=== PATIENT | female | born 1950 | race Caucasian/White ===

== ENCOUNTER 2017-04-27 13:05 | Inpatient (IN) | payer MEDICARE, OTHER ==
[~2017-04-27] VITALS: Ht 170.2 cm; Wt 88.0 kg
[2017-04-27 13:05] VITALS: BP 156/60
[2017-04-27] MEDS ORDERED: PLAVIX75 MG ORAL (13:46)
[2017-04-27] MEDS ORDERED: LORAZEPAM0.5 MG ORAL (13:46)
[2017-04-27] MEDS ORDERED: LEXAPRO10 MG ORAL (13:46)
[2017-04-27] MEDS ORDERED: TIZANIDINE HCL4 MG ORAL (13:46)
[2017-04-27] MEDS ORDERED: TRIAZOLAM0.125 MG PO (13:46)
--- NOTE | 2017-04-27 13:57 | Diagnostic Imaging Report ---
Indication: Syncope Technique: Contiguous 5 mm thick transaxial imaging of the head obtained in a Siemens Sensation [address] scanner. Soft tissue and bone windows generated. Automatic Exposure Control was utilized. Total Dose length Product (DLP): [address] Dose Index Volume (CTDIvol): 70.38, 0.15 mGy Comparison: none Findings: There is mild prominence of the ventricles, basal cisterns, and cerebral sulci consistent with atrophy. Mild, nonspecific, white matter hypoattenuation is noted throughout the brain consistent with chronic small vessel disease. There is no midline shift, edema, acute hemorrhage, mass effect, or abnormal extra-axial fluid collections. Bones and extra osseous soft tissues are unremarkable. There is palpation in the paranasal sinuses noted. Impression: No acute intracranial bleed, mass effect or edema. Mild atrophy of the brain. Nonspecific white matter hypoattenuation probably due to chronic small vessel disease. Pansinusitis The CT scanner at [facility] is accredited by the [employer] and the scans are performed using dose optimization techniques as appropriate to a performed exam including Automatic Exposure control.
--- NOTE | 2017-04-27 13:57 | Diagnostic Imaging Report ---
Indication: Syncope Technique: Contiguous 5 mm thick transaxial imaging of the head obtained in a Siemens Sensation [address] scanner. Soft tissue and bone windows generated. Automatic Exposure Control was utilized. Total Dose length Product (DLP): [address] Dose Index Volume (CTDIvol): 70.38, 0.15 mGy Comparison: none Findings: There is mild prominence of the ventricles, basal cisterns, and cerebral sulci consistent with atrophy. Mild, nonspecific, white matter hypoattenuation is noted throughout the brain consistent with chronic small vessel disease. There is no midline shift, edema, acute hemorrhage, mass effect, or abnormal extra-axial fluid collections. Bones and extra osseous soft tissues are unremarkable. There is palpation in the paranasal sinuses noted. Impression: No acute intracranial bleed, mass effect or edema. Mild atrophy of the brain. Nonspecific white matter hypoattenuation probably due to chronic small vessel disease. Pansinusitis The CT scanner at [facility] is accredited by the [employer] and the scans are performed using dose optimization techniques as appropriate to a performed exam including Automatic Exposure control.
--- NOTE | 2017-04-27 13:59 | Diagnostic Imaging Report ---
Indication: Dyspnea Comparison: None A single view chest radiograph was obtained. Findings: Cardiomediastinal appearance is within normal limits for age. Sternotomy noted. Pulmonary vascularity is appropriate. The diaphragmatic contour is smooth and costophrenic angles are sharp. No pleural effusions are identified. The bones are osteopenic. Impression: No acute findings
[2017-04-27 14:27] LABS: BASOPHILS % (AUTO) 0.6 % (0.0-2.0); EOSINOPHILS % (AUTO) 1.5 % (0.0-3.0); HEMATOCRIT 36.8 % (37.0-47.0); HEMOGLOBIN 12.3 G/DL (12.0-16.0); LYMPHOCYTES % (AUTO) 28.9 % (20.0-45.0); MEAN CORPUSCULAR VOLUME 95 FL (80-99); MONOCYTES % (AUTO) 5.9 % (1.0-10.0); NEUTROPHILS % (AUTO) 63.1 % (45.0-75.0); PLATELET COUNT 221 K/UL (150-450); RED BLOOD COUNT 3.86 M/UL (4.20-5.40); RED CELL DISTRIBUTION WIDTH 12.8 % (11.6-14.8)
[2017-04-27 14:55] LABS: ALANINE AMINOTRANSFERASE 29 U/L (12-78); ALBUMIN 3.9 G/DL (3.4-5.0); ALBUMIN/GLOBULIN RATIO 1.1 (1.0-2.7); ALKALINE PHOSPHATASE 67 U/L (46-116); ANION GAP 15 mmol/L (5-15); ASPARTATE AMINO TRANSFERASE 18 U/L (15-37); BILIRUBIN,TOTAL 0.3 MG/DL (0.2-1.0); BLOOD UREA NITROGEN 22 mg/dL (7-18); CALCIUM 8.9 MG/DL (8.5-10.1); CARBON DIOXIDE 20 MMOL/L (21-32); CHLORIDE 105 MMOL/L (98-107); CREATININE 0.9 MG/DL (0.55-1.30); POTASSIUM 4.4 MMOL/L (3.5-5.1); SODIUM 140 MMOL/L (136-145)
[2017-04-27 15:00] VITALS: BP 148/63
[2017-04-27 15:16] LABS: CKMB 0.7 NG/ML (0.0-3.6); CREATINE KINASE 51 U/L (26-308)
--- NOTE | 2017-04-27 15:40 | Emergency Room Report ---
History of Present Illness General Chief Complaint: Multiple Trauma/Fall Source: Patient, EMS Present Illness HPI 66-year-old female presents ED status post syncope. Patient passed out today at home. hit her head. Questionable LOC. Patient presents with nausea and vomiting. Denies any headache. Patient states he takes Plavix. Denies any neck stiffness or blurry vision. Patient states she was prescribed a new medication by her neurologist for migraines. No other aggravating or relieving factors. Denies any other associated symptoms Allergies: Coded Allergies: No Known Allergies (Unverified , 04/27/17) Patient History Past Medical History: DM, HTN Past Surgical History: none Pertinent Family History: none Social History: Denies: smoking, alcohol use, drug use Now: No Immunizations: UTD Reviewed Nursing Documentation: PMH: Agreed, PSxH: Agreed Nursing Documentation-PMH Past Medical History: No History, Except For Hx Hypertension: Yes Hx Diabetes: Yes Review of Systems All Other Systems: negative except mentioned in HPI Physical Exam Vital Signs Date Time Temp Pulse Resp B/P (MAP) Pulse Ox O2 Delivery O2 Flow Rate FiO2 04/27/17 12:55 98.8 60 20 166/76 100 Room Air Sp02 EP Interpretation: reviewed, normal General Appearance: no apparent distress, alert, GCS 15, non-toxic Head: normocephalic, atraumatic Eyes: bilateral eye normal inspection, bilateral eye PERRL ENT: hearing grossly normal, normal pharynx, no angioedema, normal voice Neck: full range of motion, supple/symm/no masses Respiratory: chest non-tender, lungs clear, normal breath sounds, speaking full sentences Cardiovascular #1: regular rate, rhythm, no edema Cardiovascular #2: 2+ carotid (R), 2+ carotid (L), 2+ radial (R), 2+ radial (L) , 2+ dorsalis pedis (R), 2+ dorsalis pedis (L) Gastrointestinal: normal bowel sounds, non tender, soft, non-distended, no guarding, no rebound Rectal: deferred Genitourinary: normal inspection, no CVA tenderness Musculoskeletal: back normal, gait/station normal, normal range of motion, non- tender Neurologic: alert, oriented x3, responsive, motor strength/tone normal, sensory intact, speech normal Psychiatric: judgement/insight normal, memory normal, mood/affect normal, no suicidal/homicidal ideation Reflexes: 3+ bicep (R), 3+ bicep (L), 3+ tricep (R), 3+ tricep (L), 3+ knee (R) , 3+ knee (L) Skin: normal color, no rash, warm/dry, well hydrated Lymphatic: no adenopathy Medical Decision Making Diagnostic Impression: Primary Impression: Syncope Qualified Codes: R55 - Syncope and collapse ER Course Hospital Course 66-year-old F presents ED s/p syncopal episode. Differential diagnoses include: DC/unstable angina, arrythmia, dehydration, CVA/ TIA Clinical course Patient placed on stretcher. on quality assurance monitor. After initial history and physical I ordered labs, EKG, chest x-ray, IVFs, CT Brain labs reviewed- no leukocytosis, hemoglobin/hematocrit ok, electrolytes okay, troponins negative EKG-sinus bradycardia Chest x-ray- no acute process CT brain-unremarkable Neurologist is Dr. Fuentes. He agreed to admission and request that we admit to Dr. Tam Case discussed with Dr. Tam and he agreed to accept the patient to his service for further care and support I. I feel this is a highly complex case requiring extensive working including EKG/Rhythm strip, Xray/CT/US, Blood/urine lab work, repeat exams while in ED, and administration of strong opiates/narcotics for pain control, admission to hospital or close patient follow up. Diagnosis - syncope admitted to telemetry in serious condition Labs Test 04/27/17 13:20 White Blood Count 6.0 K/UL (4.8-10.8) Red Blood Count 3.86 M/UL (4.20-5.40) Hemoglobin 12.3 G/DL (12.0-16.0) Hematocrit 36.8 % (37.0-47.0) Mean Corpuscular Volume 95 FL (80-99) Mean Corpuscular Hemoglobin 31.9 PG (27.0-31.0) Mean Corpuscular Hemoglobin Concent 33.5 G/DL (32.0-36.0) Red Cell Distribution Width 12.8 % (11.6-14.8) Platelet Count 221 K/UL (150-450) Mean Platelet Volume 6.9 FL (6.5-10.1) Neutrophils (%) (Auto) 63.1 % (45.0-75.0) Lymphocytes (%) (Auto) 28.9 % (20.0-45.0) Monocytes (%) (Auto) 5.9 % (1.0-10.0) Eosinophils (%) (Auto) 1.5 % (0.0-3.0) Basophils (%) (Auto) 0.6 % (0.0-2.0) Prothrombin Time 10.0 SEC (9.30-11.50) Prothromb Time International Ratio 1.0 (0.9-1.1) Activated Partial Thromboplast Time 22 SEC (23-33) Sodium Level 140 MMOL/L (136-145) Potassium Level 4.4 MMOL/L (3.5-5.1) Chloride Level 105 MMOL/L (98-107) Carbon Dioxide Level 20 MMOL/L (21-32) Anion Gap 15 mmol/L (5-15) Blood Urea Nitrogen 22 mg/dL (7-18) Creatinine 0.9 MG/DL (0.55-1.30) Estimat Glomerular Filtration Rate > 60 mL/min (>60) Glucose Level 157 MG/DL (74-106) Calcium Level 8.9 MG/DL (8.5-10.1) Total Bilirubin 0.3 MG/DL (0.2-1.0) Aspartate Amino Transf (AST/SGOT) 18 U/L (15-37) Alanine Aminotransferase (ALT/SGPT) 29 U/L (12-78) Alkaline Phosphatase 67 U/L (46-116) Total Creatine Kinase 51 U/L (26-308) Creatine Kinase MB 0.7 NG/ML (0.0-3.6) Creatine Kinase MB Relative Index 1.3 Troponin I 0.000 ng/mL (0.000-0.056) Pro-B-Type Natriuretic Peptide 193 pg/mL (0-125) Total Protein 7.3 G/DL (6.4-8.2) Albumin 3.9 G/DL (3.4-5.0) Globulin 3.4 g/dL Albumin/Globulin Ratio 1.1 (1.0-2.7) EKG Diagnostic Results Rate: bradycardiac Rhythm: NSR ST Segments: no acute changes ASA given to the pt in ED: No Rhythm Strip Diag. Results EP Interpretation: yes Rhythm: NSR, no PVC's, no ectopy Chest X-Ray Diagnostic Results Chest X-Ray Diagnostic Results : Chest X-Ray Ordered: Yes # of Views/Limited/Complete: 1 View Indication: Other - syncope EP Interpretation: Yes Interpretation: no consolidation, no effusion, no pneumothorax, no acute cardiopulmonary disease Impression: No acute disease Electronically Signed by: Electronically signed by Joshua Mike MD CT/MRI/US Diagnostic Results CT/MRI/US Diagnostic Results : Imaging Test Ordered: cT head Impression no acute process Last Vital Signs Date Time Temp Pulse Resp B/P (MAP) Pulse Ox O2 Delivery O2 Flow Rate FiO2 04/27/17 13:05 98.8 55 22 156/60 100 Room Air Status: improved Disposition: ADMITTED INPATIENT Condition: Serious Referrals: NON PHYSICIAN (PCP) JOSHUA MIKE M.D. Apr 27, 2017 15:40
[2017-04-27 17:00] VITALS: BP 144/58
[2017-04-27 17:40] VITALS: BP 181/67
--- NOTE | 2017-04-27 18:25 | Neurology Progress Note ---
Objective Physical Exam Last Vital Signs Date Time Temp Pulse Resp B/P (MAP) Pulse Ox O2 Delivery O2 Flow Rate FiO2 04/27/17 17:00 98.0 52 17 144/58 100 Room Air Laboratory Tests Test 04/27/17 13:20 White Blood Count 6.0 K/UL (4.8-10.8) Red Blood Count 3.86 M/UL (4.20-5.40) L Hemoglobin 12.3 G/DL (12.0-16.0) Hematocrit 36.8 % (37.0-47.0) L Mean Corpuscular Volume 95 FL (80-99) Mean Corpuscular Hemoglobin 31.9 PG (27.0-31.0) H Mean Corpuscular Hemoglobin Concent 33.5 G/DL (32.0-36.0) Red Cell Distribution Width 12.8 % (11.6-14.8) Platelet Count 221 K/UL (150-450) Mean Platelet Volume 6.9 FL (6.5-10.1) Neutrophils (%) (Auto) 63.1 % (45.0-75.0) Lymphocytes (%) (Auto) 28.9 % (20.0-45.0) Monocytes (%) (Auto) 5.9 % (1.0-10.0) Eosinophils (%) (Auto) 1.5 % (0.0-3.0) Basophils (%) (Auto) 0.6 % (0.0-2.0) Prothrombin Time 10.0 SEC (9.30-11.50) Prothromb Time International Ratio 1.0 (0.9-1.1) Activated Partial Thromboplast Time 22 SEC (23-33) L Sodium Level 140 MMOL/L (136-145) Potassium Level 4.4 MMOL/L (3.5-5.1) Chloride Level 105 MMOL/L (98-107) Carbon Dioxide Level 20 MMOL/L (21-32) L Anion Gap 15 mmol/L (5-15) Blood Urea Nitrogen 22 mg/dL (7-18) H Creatinine 0.9 MG/DL (0.55-1.30) Estimat Glomerular Filtration Rate > 60 mL/min (>60) Glucose Level 157 MG/DL (74-106) H Calcium Level 8.9 MG/DL (8.5-10.1) Total Bilirubin 0.3 MG/DL (0.2-1.0) Aspartate Amino Transf (AST/SGOT) 18 U/L (15-37) Alanine Aminotransferase (ALT/SGPT) 29 U/L (12-78) Alkaline Phosphatase 67 U/L (46-116) Total Creatine Kinase 51 U/L (26-308) Creatine Kinase MB 0.7 NG/ML (0.0-3.6) Creatine Kinase MB Relative Index 1.3 Troponin I 0.000 ng/mL (0.000-0.056) Pro-B-Type Natriuretic Peptide 193 pg/mL (0-125) H Total Protein 7.3 G/DL (6.4-8.2) Albumin 3.9 G/DL (3.4-5.0) Globulin 3.4 g/dL Albumin/Globulin Ratio 1.1 (1.0-2.7) Impression/Recommendations Problems: (1) recurrent syncope , vasovagal type (2) severe headache , muscle contraction type (3) depression, anxiety (4) CAD (coronary artery disease) of bypass graft Status: unchanged Recommendations # [id number] MARCI CASAREZ Apr 27, 2017 18:25
[2017-04-27] MEDS ORDERED: METFORMIN HCL500 M1 ORAL (18:32)
[2017-04-27] MEDS ORDERED: VITAMIN D250000 UNI1 ORAL ×2 (18:32)
[2017-04-27] MEDS ORDERED: LINZESS290 MCG PO (18:32)
[2017-04-27] MEDS ORDERED: LOVENOX80 MG/0.8 SUBQ (18:54)
[2017-04-27] MEDS ORDERED: LIPITOR80 MG ORAL (18:54)
[2017-04-27] MEDS ORDERED: ISOSORBIDE DINI20 M2 PO (18:54)
[2017-04-27] MEDS ORDERED: DEXILANT60 MG ORAL (18:54)
[2017-04-27] MEDS ORDERED: RANEXA500 MG ORAL (18:54)
[2017-04-27] MEDS ORDERED: FOLIC ACID1 M1 PO (18:54)
[2017-04-27] MEDS ORDERED: CLONIDINE HCL0.1 MG PO (18:54)
[2017-04-27] MEDS ORDERED: COZAAR50 MG ORAL (18:54)
[2017-04-27] MEDS ORDERED: ASPIR 8181 MG ORAL (18:54)
[2017-04-27] MEDS ORDERED: CLOPIDOGREL75 MG ORAL (18:54)
[2017-04-27] MEDS ORDERED: ATIVAN0.5 MG ORAL (18:54)
[2017-04-27 20:00] VITALS: BP 156/73
[2017-04-27] MEDS ORDERED: Aspirin Baby 81mg ORAL SCH (21:00)
[2017-04-27] MEDS ORDERED: LORazepam 0.5mg tab ORAL SCH (21:00)
[2017-04-27] MEDS ORDERED: LORazepam Inj 2mg/ml 1ml IV PRN (21:30)
[2017-04-27] MEDS ORDERED: Mylanta II UD 30ml ORAL PRN (21:30)
[2017-04-27] MEDS ORDERED: Albuterol/Ipratropium 3ml neb HHN PRN (21:30)
[2017-04-27] MEDS ORDERED: Nitroglycerin Subl 0.4mg tab SL PRN (21:30)
[2017-04-27] MEDS ORDERED: Miralax 17gm pkt ORAL PRN (21:30)
[2017-04-27] MEDS: Ranolazine 500mg tab ORAL SCH (21:51)
[2017-04-28] VITALS: BP 142/65
--- NOTE | 2017-04-28 03:00 | Consultation ---
DATE OF CONSULTATION: 04/27/2017 NEUROLOGICAL CONSULTATION CONSULTING PHYSICIAN: Fox Sanders M.D. REQUESTING PHYSICIAN: Nicola Tam M.D. HISTORY OF PRESENT ILLNESS: This is a 66-year-old female, seen in neurological consultation to evaluate the transient loss of consciousness. According to the patient last night, she took all medications including newly prescribed Lexapro 10 mg and tizanidine 2 mg. She had severe headache "as usual." She slept well, got up in the morning still with a headache. She went to take all her medications again, and 10 minutes later, she started to feel generalized weakness, so she had to sit down. She felt drowsy. She tried to get up. At that point, she became dizzy, "I felt like I'm going to lose consciousness," and indeed in a few seconds, she lost consciousness, fell down hitting the back of her head against the floor. Upon awakening, she was having difficulty speaking. She had episodes of vomiting. She could not get up. With some effort, she was able to reach the phone and called her daughter explaining her that she is not feeling well. She remained on the floor, as the paramedics arrived. Her vital signs included blood pressure 166/76. She was afebrile. Imaging studies obtained including CAT scan of the brain without contrast did reveal no evidence of acute intracranial abnormality. There was a mild atrophy and nonspecific white matter hypoattenuation, probably chronic small vessel disease. Chest x-ray, no acute finding. Her laboratory work included unremarkable CBC study, coagulation panel, and chemistry panel with BUN of 22, blood sugar 157, BNP 193. Normal CK, CK-MB, and normal troponins. Following admission to present, she continued with the headache and the pain at the occipital region. PAST MEDICAL HISTORY: The patient known to me from a recent assessment. She presented with persistent severe daily headaches for the last four months. Noticed that with severity of headache, she has elevation of her blood pressure. She was treated with Tylenol 1000 mg b.i.d. and 800 mg daily with minor improvement. On 03/05/2017, she had MRI of the brain without contrast. This was read as negative. The patient indicated headaches, usual diffuse, pressure-like, mostly in noon time, while the medications taken in the morning controlling headaches until noon. She is complaining of being very anxious. Two years ago, she became a and her grandson . She became severely depressed, initially placed on Klonopin. She had at least two syncopal episodes with blunt head trauma. No evidence of paroxysmal activities. No seizure activities. Symptoms again progressed over the last four months. In July 2016, she had cardiac angioplasty. She is status post CABG. She has hypertension. She is seeing psychiatrist, receiving Ativan 0.5 mg at bedtime. The patient remained unchanged. EKG with sinus bradycardia. She is on cardiac monitoring. PAST MEDICAL HISTORY: The patient has extensive medical history. This includes hypertension, coronary artery disease, depression, anxiety, hypothyroidism, and hyperlipidemia. MEDICATIONS: Her treatment now includes Plavix and aspirin, but also amlodipine, clonidine, metformin, Ranexa, Imdur, levothyroxine, as well as Ativan 0.5 mg at bedtime. ALLERGIES: None, but there is intolerance of Klonopin and Zoloft. She has a history of left shoulder sprain, severe pain in the left shoulder triggering headaches. Currently, no chest pain. No palpitations. Denies respiratory problems. She has no abdominal pain discomfort, but has frequently constipation. She admits being anxious and depressed. SOCIAL HISTORY: She lives alone, but has a close family. No alcohol. No drug abuse. Nonsmoker. She is a . PHYSICAL EXAMINATION: GENERAL: A well-developed, well-nourished female, not in acute distress, now lying in bed comfortably. VITAL SIGNS: Her current vital signs stable. Blood pressure 144/58, heart rate 62, and afebrile. HEENT: Head, normocephalic. There is palpable tenderness in the occipital region. No hemorrhage, no otorrhea, no rhinorrhea noted. NECK: Supple. No meningeal signs. MUSCULOSKELETAL: Tenderness to palpation in the left shoulder, increasing with movement. EXTREMITIES: Upper and lower extremities without clubbing, cyanosis, or edema. MENTAL STATUS: Alert and oriented x3 with no evidence of aphasia or apraxia. Cognitive function normal. Emotionally labile, tense, and anxious. CRANIAL NERVE II: Pupils both responding to light and accommodation. Extraocular movements intact. No nystagmus. CRANIAL NERVE V: Normal corneal responses. CRANIAL NERVE VII: No facial asymmetry. CRANIAL NERVE VIII: Normal hearing. CRANIAL NERVES IX THROUGH XII: Tongue is in the midline. Symmetric palate elevation. MOTOR EXAMINATION: Normal muscle tone and strength 5/5 in all extremities. No involuntary movements. Deep tendon reflexes 1+ and symmetric with downgoing toes on both sides. Sensory exam normal to pinprick and light touch. Gait not tested, but reportedly slightly unstable. IMPRESSION: 1. Recurrent syncopal episode, probably vasovagal, rule out cardiac arrhythmia. 2. Intractable cephalalgia, muscle contraction type. 3. Anxiety, depression. 4. Status post left shoulder sprain. 5. Hypertension. 6. Coronary artery disease, status post coronary artery bypass graft. 7. Hypothyroidism. RECOMMENDATIONS: 1. P.o. hydration. 2. Orthostatic blood pressure. 3. Carotid duplex study. 4. Discontinue tizanidine, which may contribute to orthostatic hypotension. 5. Continue with Tylenol and Advil for pain management. 6. Continue with Lexapro 10 mg daily and Ativan 0.25 mg every morning and 0.5 every evening. Thank you for allowing me to see this interesting patient in neurological consultation. Fox Sanders M.D. DR: ELDER JOB#: [id number] CC:
[2017-04-28 04:00] VITALS: BP 155/63
[2017-04-28] MEDS: NovoLOG Insulin Flexpen SUBQ SCH ×2 (06:30→11:30)
[2017-04-28] MEDS ORDERED: LORazepam 0.5mg tab ORAL SCH (06:30)
[2017-04-28 08:00] VITALS: BP 164/90
--- NOTE | 2017-04-28 08:04 | Cardiology Progress Note ---
Assessment/Plan Assessment/Plan syncoep / near syncope cephalgia bradycardia sinus dm htn hld his of hep c cured nafld dkeep on tele orthostatic vitals avoid neg chronotropic meds pt herself convinced all sx related to tizanidine repeat trop and ekg will follwo [id number] Objective Last 24 Hour Vital Signs Date Time Temp Pulse Resp B/P (MAP) Pulse Ox O2 Delivery O2 Flow Rate FiO2 04/28/17 04:00 97.9 59 20 155/63 96 Room Air 04/28/17 04:00 56 04/28/17 00:00 53 04/28/17 00:00 98.1 52 20 142/65 96 Room Air 04/27/17 20:00 53 04/27/17 20:00 97.0 51 20 156/73 99 Room Air 04/27/17 19:27 181/67 04/27/17 17:40 97.5 58 17 181/67 100 Room Air 04/27/17 17:00 98.0 52 17 144/58 100 Room Air 04/27/17 15:57 98.2 50 15 148/63 97 Room Air 04/27/17 15:00 98.2 50 15 148/63 97 Room Air 04/27/17 13:05 98.8 55 22 156/60 100 Room Air 04/27/17 12:55 98.8 60 20 166/76 100 Room Air Laboratory Tests Test 04/27/17 13:20 White Blood Count 6.0 K/UL (4.8-10.8) Red Blood Count 3.86 M/UL (4.20-5.40) L Hemoglobin 12.3 G/DL (12.0-16.0) Hematocrit 36.8 % (37.0-47.0) L Mean Corpuscular Volume 95 FL (80-99) Mean Corpuscular Hemoglobin 31.9 PG (27.0-31.0) H Mean Corpuscular Hemoglobin Concent 33.5 G/DL (32.0-36.0) Red Cell Distribution Width 12.8 % (11.6-14.8) Platelet Count 221 K/UL (150-450) Mean Platelet Volume 6.9 FL (6.5-10.1) Neutrophils (%) (Auto) 63.1 % (45.0-75.0) Lymphocytes (%) (Auto) 28.9 % (20.0-45.0) Monocytes (%) (Auto) 5.9 % (1.0-10.0) Eosinophils (%) (Auto) 1.5 % (0.0-3.0) Basophils (%) (Auto) 0.6 % (0.0-2.0) Prothrombin Time 10.0 SEC (9.30-11.50) Prothromb Time International Ratio 1.0 (0.9-1.1) Activated Partial Thromboplast Time 22 SEC (23-33) L Sodium Level 140 MMOL/L (136-145) Potassium Level 4.4 MMOL/L (3.5-5.1) Chloride Level 105 MMOL/L (98-107) Carbon Dioxide Level 20 MMOL/L (21-32) L Anion Gap 15 mmol/L (5-15) Blood Urea Nitrogen 22 mg/dL (7-18) H Creatinine 0.9 MG/DL (0.55-1.30) Estimat Glomerular Filtration Rate > 60 mL/min (>60) Glucose Level 157 MG/DL (74-106) H Calcium Level 8.9 MG/DL (8.5-10.1) Total Bilirubin 0.3 MG/DL (0.2-1.0) Aspartate Amino Transf (AST/SGOT) 18 U/L (15-37) Alanine Aminotransferase (ALT/SGPT) 29 U/L (12-78) Alkaline Phosphatase 67 U/L (46-116) Total Creatine Kinase 51 U/L (26-308) Creatine Kinase MB 0.7 NG/ML (0.0-3.6) Creatine Kinase MB Relative Index 1.3 Troponin I 0.000 ng/mL (0.000-0.056) Pro-B-Type Natriuretic Peptide 193 pg/mL (0-125) H Total Protein 7.3 G/DL (6.4-8.2) Albumin 3.9 G/DL (3.4-5.0) Globulin 3.4 g/dL Albumin/Globulin Ratio 1.1 (1.0-2.7) TERI THAO Apr 28, 2017 08:04
[2017-04-28] MEDS: Ranolazine 500mg tab ORAL SCH (08:18)
[2017-04-28 08:33] LABS: BASOPHILS % (AUTO) 0.6 % (0.0-2.0); EOSINOPHILS % (AUTO) 1.1 % (0.0-3.0); HEMATOCRIT 38.4 % (37.0-47.0); HEMOGLOBIN 12.1 G/DL (12.0-16.0); LYMPHOCYTES % (AUTO) 40.9 % (20.0-45.0); MEAN CORPUSCULAR VOLUME 96 FL (80-99); MONOCYTES % (AUTO) 8.7 % (1.0-10.0); NEUTROPHILS % (AUTO) 48.8 % (45.0-75.0); PLATELET COUNT 220 K/UL (150-450); RED BLOOD COUNT 3.98 M/UL (4.20-5.40); RED CELL DISTRIBUTION WIDTH 12.6 % (11.6-14.8); WHITE BLOOD COUNT 8.8 K/UL (4.8-10.8)
[2017-04-28 08:36] VITALS: BP 164/90
[2017-04-28 09:00] LABS: ALANINE AMINOTRANSFERASE 23 U/L (12-78); ALBUMIN 3.7 G/DL (3.4-5.0); ALBUMIN/GLOBULIN RATIO 1.1 (1.0-2.7); ALKALINE PHOSPHATASE 69 U/L (46-116); ANION GAP 9 mmol/L (5-15); ASPARTATE AMINO TRANSFERASE 16 U/L (15-37); BILIRUBIN,TOTAL 0.3 MG/DL (0.2-1.0); BLOOD UREA NITROGEN 20 mg/dL (7-18); CARBON DIOXIDE 26 MMOL/L (21-32); CHLORIDE 107 MMOL/L (98-107); POTASSIUM 4.3 MMOL/L (3.5-5.1); SODIUM 142 MMOL/L (136-145)
[2017-04-28] MEDS ORDERED: Heparin 5000 units/ml inj SUBQ SCH (09:00)
[2017-04-28] MEDS ORDERED: metFORMIN 500mg tab ORAL SCH (09:00)
[2017-04-28] MEDS ORDERED: Losartan 50mg tab ORAL SCH (09:00)
[2017-04-28] MEDS ORDERED: Imdur 30mg tab ORAL SCH (09:00)
[2017-04-28 09:11] LABS: CHOLESTEROL 166 MG/DL (< 200); HDL CHOLESTEROL 43 MG/DL (40-60); TRIGLYCERIDES 174 MG/DL (0-200)
--- NOTE | 2017-04-28 12:14 | Neurology Progress Note ---
Interim History Interim History ROS Limited/Unobtainable: No Complaints: Lei today better Events: stable Objective Physical Exam Last Vital Signs Date Time Temp Pulse Resp B/P (MAP) Pulse Ox O2 Delivery O2 Flow Rate FiO2 04/28/17 08:36 164/90 04/28/17 08:00 96.4 59 21 95 Room Air 04/28/17 07:33 21 Laboratory Tests Test 04/27/17 13:20 04/28/17 07:20 White Blood Count 6.0 K/UL (4.8-10.8) 8.8 K/UL (4.8-10.8) Red Blood Count 3.86 M/UL (4.20-5.40) L 3.98 M/UL (4.20-5.40) L Hemoglobin 12.3 G/DL (12.0-16.0) 12.1 G/DL (12.0-16.0) Hematocrit 36.8 % (37.0-47.0) L 38.4 % (37.0-47.0) Mean Corpuscular Volume 95 FL (80-99) 96 FL (80-99) Mean Corpuscular Hemoglobin 31.9 PG (27.0-31.0) H 30.3 PG (27.0-31.0) Mean Corpuscular Hemoglobin Concent 33.5 G/DL (32.0-36.0) 31.4 G/DL (32.0-36.0) L Red Cell Distribution Width 12.8 % (11.6-14.8) 12.6 % (11.6-14.8) Platelet Count 221 K/UL (150-450) 220 K/UL (150-450) Mean Platelet Volume 6.9 FL (6.5-10.1) 6.8 FL (6.5-10.1) Neutrophils (%) (Auto) 63.1 % (45.0-75.0) 48.8 % (45.0-75.0) Lymphocytes (%) (Auto) 28.9 % (20.0-45.0) 40.9 % (20.0-45.0) Monocytes (%) (Auto) 5.9 % (1.0-10.0) 8.7 % (1.0-10.0) Eosinophils (%) (Auto) 1.5 % (0.0-3.0) 1.1 % (0.0-3.0) Basophils (%) (Auto) 0.6 % (0.0-2.0) 0.6 % (0.0-2.0) Prothrombin Time 10.0 SEC (9.30-11.50) 10.1 SEC (9.30-11.50) Prothromb Time International Ratio 1.0 (0.9-1.1) 1.0 (0.9-1.1) Activated Partial Thromboplast Time 22 SEC (23-33) L 25 SEC (23-33) Sodium Level 140 MMOL/L (136-145) 142 MMOL/L (136-145) Potassium Level 4.4 MMOL/L (3.5-5.1) 4.3 MMOL/L (3.5-5.1) Chloride Level 105 MMOL/L (98-107) 107 MMOL/L (98-107) Carbon Dioxide Level 20 MMOL/L (21-32) L 26 MMOL/L (21-32) Anion Gap 15 mmol/L (5-15) 9 mmol/L (5-15) Blood Urea Nitrogen 22 mg/dL (7-18) H 20 mg/dL (7-18) H Creatinine 0.9 MG/DL (0.55-1.30) 1.0 MG/DL (0.55-1.30) Estimat Glomerular Filtration Rate > 60 mL/min (>60) 55.1 mL/min (>60) Glucose Level 157 MG/DL (74-106) H 113 MG/DL (74-106) H Calcium Level 8.9 MG/DL (8.5-10.1) 9.0 MG/DL (8.5-10.1) Total Bilirubin 0.3 MG/DL (0.2-1.0) 0.3 MG/DL (0.2-1.0) Aspartate Amino Transf (AST/SGOT) 18 U/L (15-37) 16 U/L (15-37) Alanine Aminotransferase (ALT/SGPT) 29 U/L (12-78) 23 U/L (12-78) Alkaline Phosphatase 67 U/L (46-116) 69 U/L (46-116) Total Creatine Kinase 51 U/L (26-308) Creatine Kinase MB 0.7 NG/ML (0.0-3.6) Creatine Kinase MB Relative Index 1.3 Troponin I 0.000 ng/mL (0.000-0.056) Pro-B-Type Natriuretic Peptide 193 pg/mL (0-125) H Total Protein 7.3 G/DL (6.4-8.2) 7.2 G/DL (6.4-8.2) Albumin 3.9 G/DL (3.4-5.0) 3.7 G/DL (3.4-5.0) Globulin 3.4 g/dL 3.5 g/dL Albumin/Globulin Ratio 1.1 (1.0-2.7) 1.1 (1.0-2.7) Triglycerides Level 174 MG/DL (0-200) Cholesterol Level 166 MG/DL (< 200) LDL Cholesterol 100 mg/dL (<100) HDL Cholesterol 43 MG/DL (40-60) Cholesterol/HDL Ratio 3.9 (3.3-4.4) Thyroid Stimulating Hormone (TSH) 1.885 uiU/mL (0.360-3.740) General: well developed, well nourished, no acute distress Head: normocophalic, atraumatic Neurologic Exam Mental Status: awake, alert, oriented x4, normal cognition, good mathematical skills, normal recent memory, normal remote memory, preserved visuospatial function, other - very anxious Speech: normal speech, no dysarthia Language: normal language, no aphasia Cranial Nerve II: fundus normal, visual mckeon, no papilledema Cranial Nerves III, IV, : PERRLA, EOMI, pupils Cranial Nerve V: normal facial sensations, temporales function normal, masseters function normal, pterygoids function normal Cranial Nerve VII: no facial asymmetry, normal facial expressions Cranial Nerve VIII: normal hearing, no nystagmus Cranial Nerve IX: normal palate elevation, gag response Cranial Nerve X: no voice hoarseness Cranial Nerve XI: SCM symmetric, trapezii function normal Cranial Nerve XII: tongue midline, no tongue atrophy/fasciculations Motor System: normal muscle tone, strength 5/5, no involuntary movement, no muscle wasting Sensory: normal pinprick, normal light touch, normal position sense, normal graphesthesia Coordination: normal finger to nose bilaterally, normal heel to vicente bilaterally, negative Romberg test Deep Tendon Reflexes: 2+ bicep (L), 2+ bicep (R), 2+ tricep (L), 2+ tricep (R) , 2+ brachioradialis (L), 2+ brachioradialis (R), 2+ knee (L), 2+ knee (R), 2+ ankle (L), 2+ ankle (R) Stance: normal Gait: stable, normal regular, heel + toe gait Impression/Recommendations Problems: (1) recurrent syncope , vasovagal type (2) severe headache , muscle contraction type (3) depression, anxiety (4) CAD (coronary artery disease) of bypass graft Status: stable, unchanged Recommendations # [id number] MARCI Fernández Apr 28, 2017 12:14
--- NOTE | 2017-04-28 13:13 | History and Physical ---
History of Present Illness General Date patient seen: Apr 27, 2017 Reason for Hospitalization: Multiple Trauma/Fall Present Illness HPI 66-year-old female presented to ED status post syncope. Patient passed out today at home and hit her head. She also had some nausea and vomiting. Denies any neck stiffness or blurry vision. Patient states she was prescribed a new medication by her neurologist for migraines. No other aggravating or relieving factors. Denies any other associated symptoms. She is admitted to telemetry for w/u of her syncopal episode. Allergies: Coded Allergies: No Known Allergies (Unverified , 04/27/17) Medication History Scheduled Aspirin* (Aspir 81*), 81 MG ORAL DAILY, (Reported) Atorvastatin (Lipitor), 10 MG ORAL DAILY, (Reported) Clopidogrel Bisulfate* (Plavix*), Unknown Dose ORAL DAILY, (Reported) Clopidogrel* (Clopidogrel*), 75 MG ORAL DAILY, (Reported) Dexlansoprazole (Dexilant), 60 MG ORAL DAILY, (Reported) Enoxaparin (Lovenox), 80 MG SUBQ DAILY, (Reported) Ergocalciferol (Vitamin D2)* (Vitamin D*), 50,000 UNIT ORAL ONCE A WEEK, ( Reported) Ergocalciferol (Vitamin D2)* (Vitamin D*), 50,000 UNIT ORAL DAILY, (Reported) Escitalopram Oxalate* (Lexapro*), Unknown Dose ORAL DAILY, (Reported) Folic Acid (Folic Acid), 1 MG PO DAILY, (Reported) Isosorbide Dinitrate (Isosorbide Dinitrate), 60 MG PO BID, (Reported) Lorazepam* (Lorazepam*), Unknown Dose ORAL THREE TIMES A DAY, (Reported) Lorazepam* (Ativan*), 0.5 MG ORAL THREE TIMES A DAY, (Reported) Losartan Potassium* (Cozaar*), 50 MG ORAL DAILY, (Reported) Metformin Hcl* (Metformin Hcl*), 500 MG ORAL TWICE A DAY, (Reported) Ranolazine* (Ranexa*), 500 MG ORAL EVERY 12 HOURS, (Reported) Tizanidine Hcl* (Zanaflex*), Unknown Dose ORAL THREE TIMES A DAY, (Reported) Triazolam* (Halcion*), Unknown Dose PO QHS PRN SLEEP, (Reported) Miscellaneous Medications Clonidine Hcl (Clonidine Hcl), 0.1 MG PO, (Reported) Linaclotide (Linzess), 290 MCG PO, (Reported) Patient History Healthcare decision maker Resuscitation status Full Code Advanced Directive on File Past Medical/Surgical History Past Medical/Surgical History: (1) CAD (coronary artery disease) of bypass graft (2) depression, anxiety Review of Systems Constitutional: Reports: malaise, weakness Eye: Reports: no symptoms ENT: Reports: no symptoms Respiratory: Reports: no symptoms All Other Systems: negative except mentioned in HPI Physical Exam General Appearance: WD/WN Lines, tubes and drains: peripheral HEENT: normocephalic, atraumatic, anicteric Neck: non-tender, normal alignment, supple Respiratory/Chest: chest wall non-tender, lungs clear Breasts: no masses Cardiovascular/Chest: normal peripheral pulses, normal rate, regular rhythm, no JVD Abdomen: soft Genitourinary/Rectal: normal genital exam Extremities: normal range of motion Last 24 Hour Vital Signs Date Time Temp Pulse Resp B/P (MAP) Pulse Ox O2 Delivery O2 Flow Rate FiO2 04/28/17 12:00 57 04/28/17 08:36 164/90 04/28/17 08:19 164/90 04/28/17 08:00 96.4 59 21 164/90 95 Room Air 04/28/17 08:00 57 04/28/17 07:33 53 18 Room Air 21 04/28/17 04:00 97.9 59 20 155/63 96 Room Air 04/28/17 04:00 56 04/28/17 00:00 53 04/28/17 00:00 98.1 52 20 142/65 96 Room Air 04/27/17 20:00 53 04/27/17 20:00 97.0 51 20 156/73 99 Room Air 04/27/17 19:27 181/67 04/27/17 17:40 97.5 58 17 181/67 100 Room Air 04/27/17 17:00 98.0 52 17 144/58 100 Room Air 04/27/17 15:57 98.2 50 15 148/63 97 Room Air 04/27/17 15:00 98.2 50 15 148/63 97 Room Air Laboratory Tests Test 04/27/17 13:20 04/28/17 07:20 White Blood Count 6.0 K/UL (4.8-10.8) 8.8 K/UL (4.8-10.8) Red Blood Count 3.86 M/UL (4.20-5.40) L 3.98 M/UL (4.20-5.40) L Hemoglobin 12.3 G/DL (12.0-16.0) 12.1 G/DL (12.0-16.0) Hematocrit 36.8 % (37.0-47.0) L 38.4 % (37.0-47.0) Mean Corpuscular Volume 95 FL (80-99) 96 FL (80-99) Mean Corpuscular Hemoglobin 31.9 PG (27.0-31.0) H 30.3 PG (27.0-31.0) Mean Corpuscular Hemoglobin Concent 33.5 G/DL (32.0-36.0) 31.4 G/DL (32.0-36.0) L Red Cell Distribution Width 12.8 % (11.6-14.8) 12.6 % (11.6-14.8) Platelet Count 221 K/UL (150-450) 220 K/UL (150-450) Mean Platelet Volume 6.9 FL (6.5-10.1) 6.8 FL (6.5-10.1) Neutrophils (%) (Auto) 63.1 % (45.0-75.0) 48.8 % (45.0-75.0) Lymphocytes (%) (Auto) 28.9 % (20.0-45.0) 40.9 % (20.0-45.0) Monocytes (%) (Auto) 5.9 % (1.0-10.0) 8.7 % (1.0-10.0) Eosinophils (%) (Auto) 1.5 % (0.0-3.0) 1.1 % (0.0-3.0) Basophils (%) (Auto) 0.6 % (0.0-2.0) 0.6 % (0.0-2.0) Prothrombin Time 10.0 SEC (9.30-11.50) 10.1 SEC (9.30-11.50) Prothromb Time International Ratio 1.0 (0.9-1.1) 1.0 (0.9-1.1) Activated Partial Thromboplast Time 22 SEC (23-33) L 25 SEC (23-33) Sodium Level 140 MMOL/L (136-145) 142 MMOL/L (136-145) Potassium Level 4.4 MMOL/L (3.5-5.1) 4.3 MMOL/L (3.5-5.1) Chloride Level 105 MMOL/L (98-107) 107 MMOL/L (98-107) Carbon Dioxide Level 20 MMOL/L (21-32) L 26 MMOL/L (21-32) Anion Gap 15 mmol/L (5-15) 9 mmol/L (5-15) Blood Urea Nitrogen 22 mg/dL (7-18) H 20 mg/dL (7-18) H Creatinine 0.9 MG/DL (0.55-1.30) 1.0 MG/DL (0.55-1.30) Estimat Glomerular Filtration Rate > 60 mL/min (>60) 55.1 mL/min (>60) Glucose Level 157 MG/DL (74-106) H 113 MG/DL (74-106) H Calcium Level 8.9 MG/DL (8.5-10.1) 9.0 MG/DL (8.5-10.1) Total Bilirubin 0.3 MG/DL (0.2-1.0) 0.3 MG/DL (0.2-1.0) Aspartate Amino Transf (AST/SGOT) 18 U/L (15-37) 16 U/L (15-37) Alanine Aminotransferase (ALT/SGPT) 29 U/L (12-78) 23 U/L (12-78) Alkaline Phosphatase 67 U/L (46-116) 69 U/L (46-116) Total Creatine Kinase 51 U/L (26-308) Creatine Kinase MB 0.7 NG/ML (0.0-3.6) Creatine Kinase MB Relative Index 1.3 Troponin I 0.000 ng/mL (0.000-0.056) Pro-B-Type Natriuretic Peptide 193 pg/mL (0-125) H Total Protein 7.3 G/DL (6.4-8.2) 7.2 G/DL (6.4-8.2) Albumin 3.9 G/DL (3.4-5.0) 3.7 G/DL (3.4-5.0) Globulin 3.4 g/dL 3.5 g/dL Albumin/Globulin Ratio 1.1 (1.0-2.7) 1.1 (1.0-2.7) Triglycerides Level 174 MG/DL (0-200) Cholesterol Level 166 MG/DL (< 200) LDL Cholesterol 100 mg/dL (<100) HDL Cholesterol 43 MG/DL (40-60) Cholesterol/HDL Ratio 3.9 (3.3-4.4) Thyroid Stimulating Hormone (TSH) 1.885 uiU/mL (0.360-3.740) Height (Feet): 5 Height (Inches): 7.00 Weight (Pounds): 194 Medications Current Medications Medications (Trade) Dose Ordered Sig/Holli Route PRN Reason Start Time Stop Time Status Last Admin Dose Admin Acetaminophen (Tylenol) 650 mg Q4H PRN ORAL fever 04/27/17 21:30 05/27/17 21:29 Al Hydroxide/Mg Hydroxide (Mylanta II) 30 ml Q6H PRN ORAL dyspepsia 04/27/17 21:30 05/27/17 21:29 Albuterol/ Ipratropium (Albuterol/ Ipratropium) 3 ml Q4H PRN HHN Shortness of Breath 04/27/17 21:30 05/02/17 21:29 Aspirin (ASA) 81 mg QHS ORAL 04/27/17 21:00 05/27/17 20:59 04/27/17 21:52 Atorvastatin Calcium (Lipitor) 10 mg BEDTIME ORAL 04/27/17 21:00 05/27/17 20:59 04/27/17 21:52 Clopidogrel Bisulfate (Plavix) 75 mg DAILY ORAL 04/28/17 09:00 05/28/17 08:59 04/28/17 08:09 Dextrose (Dextrose 50%) STAT PRN IV Hypoglycemia 04/27/17 21:30 05/27/17 21:29 Folic Acid (Folate) 1 mg DAILY ORAL 04/28/17 09:00 05/28/17 08:59 04/28/17 08:10 Heparin Sodium (Porcine) (Heparin 5000 units/ml) 5,000 units EVERY 12 HOURS SUBQ 04/28/17 09:00 05/28/17 08:59 04/28/17 08:17 Ibuprofen (Motrin) 800 mg Q6H PRN ORAL For Pain 04/28/17 11:15 05/28/17 11:14 Insulin Aspart (NovoLOG) BEFORE MEALS AND HS SUBQ 04/28/17 06:30 05/28/17 06:29 Isosorbide Mononitrate (Imdur) 60 mg BID ORAL 04/28/17 09:00 05/28/17 08:59 04/28/17 08:36 Levothyroxine Sodium (Synthroid) 88 mcg ACBREAKFAST ORAL 04/28/17 06:30 05/28/17 06:29 04/28/17 08:10 Lorazepam (Ativan 2mg/ml 1ml) 0.5 mg Q4H PRN IV For Anxiety 04/27/17 21:30 05/04/17 21:29 Lorazepam (Ativan) 0.25 mg ACBREAKFAST ORAL 04/28/17 06:30 05/05/17 06:29 04/28/17 08:09 Lorazepam (Ativan) 0.5 mg QHS ORAL 04/27/17 21:00 05/04/17 20:59 04/27/17 21:52 Losartan Potassium (Cozaar) 50 mg DAILY ORAL 04/28/17 09:00 05/28/17 08:59 04/28/17 08:19 Metformin HCl (Glucophage) 500 mg BID ORAL 04/28/17 09:00 05/28/17 08:59 04/28/17 08:10 Nitroglycerin (Ntg) 0.4 mg Q5M X 3 DOSES PRN SL Prn Chest Pain 04/27/17 21:30 05/27/17 21:29 Non-Formulary Medication (Non-Formulary Med) 1 ea DAILY ORAL 04/28/17 09:00 05/28/17 08:59 UNV Ondansetron HCl (Zofran) 4 mg Q6H PRN IVP Nausea & Vomiting 04/27/17 21:30 05/27/17 21:29 Pantoprazole (Protonix) 40 mg DAILY@0730 ORAL 04/28/17 07:30 05/28/17 07:29 Polyethylene Glycol (Miralax) 17 gm HSPRN PRN ORAL Constipation 04/27/17 21:30 05/27/17 21:29 Ranolazine (Ranexa ER 500mg) 500 mg Q12HR ORAL 04/27/17 21:00 05/27/17 20:59 04/28/17 08:18 Temazepam (Restoril) 15 mg HSPRN PRN ORAL Insomnia 04/27/17 21:30 05/04/17 21:29 Assessment/Plan Problem List: (1) Acute encephalopathy ICD Codes: G93.40 - Encephalopathy, unspecified SNOMED: 0625288 (2) depression, anxiety (3) CAD (coronary artery disease) of bypass graft ICD Codes: I25.810 - Atherosclerosis of coronary artery bypass graft(s) without angina pectoris SNOMED: 21711887, [id number], [id number], [id number], [id number] Assessment/Plan telemetry echo neuro evaluation evaluate pts current meds MELANY ALEXANDRA Apr 28, 2017 13:13
--- NOTE | 2017-04-28 13:14 | Pulmonology Progress Note ---
Assessment/Plan Problems: (1) Acute encephalopathy (2) depression, anxiety (3) CAD (coronary artery disease) of bypass graft Assessment/Plan all reviewed asymptomatic now dc home with outpatient f/u Subjective ROS Limited/Unobtainable: No Constitutional: Reports: no symptoms HEENT: Repors: no symptoms Respiratory: Reports: no symptoms Allergies: Coded Allergies: No Known Allergies (Unverified , 04/27/17) Objective Last 24 Hour Vital Signs Date Time Temp Pulse Resp B/P (MAP) Pulse Ox O2 Delivery O2 Flow Rate FiO2 04/28/17 12:00 57 04/28/17 08:36 164/90 04/28/17 08:19 164/90 04/28/17 08:00 96.4 59 21 164/90 95 Room Air 04/28/17 08:00 57 04/28/17 07:33 53 18 Room Air 21 04/28/17 04:00 97.9 59 20 155/63 96 Room Air 04/28/17 04:00 56 04/28/17 00:00 53 04/28/17 00:00 98.1 52 20 142/65 96 Room Air 04/27/17 20:00 53 04/27/17 20:00 97.0 51 20 156/73 99 Room Air 04/27/17 19:27 181/67 04/27/17 17:40 97.5 58 17 181/67 100 Room Air 04/27/17 17:00 98.0 52 17 144/58 100 Room Air 04/27/17 15:57 98.2 50 15 148/63 97 Room Air 04/27/17 15:00 98.2 50 15 148/63 97 Room Air General Appearance: WD/WN HEENT: normocephalic, atraumatic Breasts: no masses Cardiovascular: normal peripheral pulses, normal rate Abdomen: normal bowel sounds, soft, non tender Genitourinary: normal external genitalia Extremities: no clubbing Skin: no rash Laboratory Tests 04/27/17 13:20: White Blood Count 6.0, Red Blood Count 3.86L, Hemoglobin 12.3, Hematocrit 36.8L , Mean Corpuscular Volume 95, Mean Corpuscular Hemoglobin 31.9H, Mean Corpuscular Hemoglobin Concent 33.5, Red Cell Distribution Width 12.8, Platelet Count 221, Mean Platelet Volume 6.9, Neutrophils (%) (Auto) 63.1, Lymphocytes (% ) (Auto) 28.9, Monocytes (%) (Auto) 5.9, Eosinophils (%) (Auto) 1.5, Basophils ( %) (Auto) 0.6, Prothrombin Time 10.0, Prothromb Time International Ratio 1.0, Activated Partial Thromboplast Time 22L, Sodium Level 140, Potassium Level 4.4, Chloride Level 105, Carbon Dioxide Level 20L, Anion Gap 15, Blood Urea Nitrogen 22H, Creatinine 0.9, Estimat Glomerular Filtration Rate > 60, Glucose Level 157H , Calcium Level 8.9, Total Bilirubin 0.3, Aspartate Amino Transf (AST/SGOT) 18, Alanine Aminotransferase (ALT/SGPT) 29, Alkaline Phosphatase 67, Total Creatine Kinase 51, Creatine Kinase MB 0.7, Creatine Kinase MB Relative Index 1.3, Troponin I 0.000, Pro-B-Type Natriuretic Peptide 193H, Total Protein 7.3, Albumin 3.9, Globulin 3.4, Albumin/Globulin Ratio 1.1 04/28/17 07:20: White Blood Count 8.8, Red Blood Count 3.98L, Hemoglobin 12.1, Hematocrit 38.4, Mean Corpuscular Volume 96, Mean Corpuscular Hemoglobin 30.3, Mean Corpuscular Hemoglobin Concent 31.4L, Red Cell Distribution Width 12.6, Platelet Count 220, Mean Platelet Volume 6.8, Neutrophils (%) (Auto) 48.8, Lymphocytes (%) (Auto) 40.9, Monocytes (%) (Auto) 8.7, Eosinophils (%) (Auto) 1.1, Basophils (%) (Auto ) 0.6, Prothrombin Time 10.1, Prothromb Time International Ratio 1.0, Activated Partial Thromboplast Time 25, Sodium Level 142, Potassium Level 4.3, Chloride Level 107, Carbon Dioxide Level 26, Anion Gap 9, Blood Urea Nitrogen 20H, Creatinine 1.0, Estimat Glomerular Filtration Rate 55.1, Glucose Level 113H, Calcium Level 9.0, Total Bilirubin 0.3, Aspartate Amino Transf (AST/SGOT) 16, Alanine Aminotransferase (ALT/SGPT) 23, Alkaline Phosphatase 69, Total Protein 7.2, Albumin 3.7, Globulin 3.5, Albumin/Globulin Ratio 1.1, Triglycerides Level 174, Cholesterol Level 166, LDL Cholesterol 100, HDL Cholesterol 43, Cholesterol /HDL Ratio 3.9, Thyroid Stimulating Hormone (TSH) 1.885 Current Medications Medications (Trade) Dose Ordered Sig/Holli Route PRN Reason Start Time Stop Time Status Last Admin Dose Admin Acetaminophen (Tylenol) 650 mg Q4H PRN ORAL fever 04/27/17 21:30 05/27/17 21:29 Al Hydroxide/Mg Hydroxide (Mylanta II) 30 ml Q6H PRN ORAL dyspepsia 04/27/17 21:30 05/27/17 21:29 Albuterol/ Ipratropium (Albuterol/ Ipratropium) 3 ml Q4H PRN HHN Shortness of Breath 04/27/17 21:30 05/02/17 21:29 Aspirin (ASA) 81 mg QHS ORAL 04/27/17 21:00 05/27/17 20:59 04/27/17 21:52 Atorvastatin Calcium (Lipitor) 10 mg BEDTIME ORAL 04/27/17 21:00 05/27/17 20:59 04/27/17 21:52 Clopidogrel Bisulfate (Plavix) 75 mg DAILY ORAL 04/28/17 09:00 05/28/17 08:59 04/28/17 08:09 Dextrose (Dextrose 50%) STAT PRN IV Hypoglycemia 04/27/17 21:30 05/27/17 21:29 Folic Acid (Folate) 1 mg DAILY ORAL 04/28/17 09:00 05/28/17 08:59 04/28/17 08:10 Heparin Sodium (Porcine) (Heparin 5000 units/ml) 5,000 units EVERY 12 HOURS SUBQ 04/28/17 09:00 05/28/17 08:59 04/28/17 08:17 Ibuprofen (Motrin) 800 mg Q6H PRN ORAL For Pain 04/28/17 11:15 05/28/17 11:14 Insulin Aspart (NovoLOG) BEFORE MEALS AND HS SUBQ 04/28/17 06:30 05/28/17 06:29 Isosorbide Mononitrate (Imdur) 60 mg BID ORAL 04/28/17 09:00 05/28/17 08:59 04/28/17 08:36 Levothyroxine Sodium (Synthroid) 88 mcg ACBREAKFAST ORAL 04/28/17 06:30 05/28/17 06:29 04/28/17 08:10 Lorazepam (Ativan 2mg/ml 1ml) 0.5 mg Q4H PRN IV For Anxiety 04/27/17 21:30 05/04/17 21:29 Lorazepam (Ativan) 0.25 mg ACBREAKFAST ORAL 04/28/17 06:30 05/05/17 06:29 04/28/17 08:09 Lorazepam (Ativan) 0.5 mg QHS ORAL 04/27/17 21:00 05/04/17 20:59 04/27/17 21:52 Losartan Potassium (Cozaar) 50 mg DAILY ORAL 04/28/17 09:00 05/28/17 08:59 04/28/17 08:19 Metformin HCl (Glucophage) 500 mg BID ORAL 04/28/17 09:00 05/28/17 08:59 04/28/17 08:10 Nitroglycerin (Ntg) 0.4 mg Q5M X 3 DOSES PRN SL Prn Chest Pain 04/27/17 21:30 05/27/17 21:29 Non-Formulary Medication (Non-Formulary Med) 1 ea DAILY ORAL 04/28/17 09:00 05/28/17 08:59 UNV Ondansetron HCl (Zofran) 4 mg Q6H PRN IVP Nausea & Vomiting 04/27/17 21:30 05/27/17 21:29 Pantoprazole (Protonix) 40 mg DAILY@0730 ORAL 04/28/17 07:30 05/28/17 07:29 Polyethylene Glycol (Miralax) 17 gm HSPRN PRN ORAL Constipation 04/27/17 21:30 05/27/17 21:29 Ranolazine (Ranexa ER 500mg) 500 mg Q12HR ORAL 04/27/17 21:00 05/27/17 20:59 04/28/17 08:18 Temazepam (Restoril) 15 mg HSPRN PRN ORAL Insomnia 04/27/17 21:30 05/04/17 21:29 MELANY ALEXANDRA Apr 28, 2017 13:14
--- NOTE | 2017-04-28 17:30 | Consultation ---
DATE OF CONSULTATION: 04/28/2017 CARDIAC CONSULTATION CONSULTING PHYSICIAN: Chino Guadalupe M.D. REFERRING PHYSICIAN: Nicola Tam M.D. REASON FOR REFERRAL: Syncope. HISTORY OF PRESENT ILLNESS: This is a middle-aged female with history of multiple medical problems. The patient was apparently seen by Dr. Sanders recently because of her headaches and evaluation was performed. The patient eventually was prescribed some tizanidine and Lexapro. Apparently after taking the second dose in the morning of admission, she felt dizzy, not good, wanted to go back to bed, she tried to get up, and she fell and apparently, she remembers the fall, but does not remember the exact nature and she thinks she lost consciousness. When she fell down, head hit the floor. On awakening, she had difficulty talking. She was actually nauseated and vomiting. She was unable to stand up on several occasions and eventually called her family members who came by and called 911. The patient was brought to the emergency room here at [facility]. Unfortunately, senior maintenance machinist run sheet is not available for me to review and the patient is admitted to the hospital here at [facility]. She has had extensive workup and treatment at [facility]. She really has not had any angina, although she does have a history of coronary disease and coronary stenting by Dr. Dumont in July of 2016 for symptoms, which she has not had ever since. There is no PND. She uses three small pillows. She does not really have any palpitations. She has not felt good. She does have some discomfort in different parts of her chest, but she admits that these discomforts are different than what she has experienced prior to her stent. She is convinced that her episodes of this dizziness and fall was related to the medication that she just started and nothing else. PAST MEDICAL HISTORY: According to [facility] records is positive for history of coronary artery disease, status post coronary bypass grafting; hepatitis C, which has been eradicated with treatment. She has had a history of diabetes mellitus; hypertension; hyperlipidemia; hypothyroidism; obesity; diastolic dysfunction; angina; asthmatic bronchitis; urinary tract infections; thyroid nodule; delirium; beta-quinn intolerance; chest pains; parathyroidectomy; radiation therapy; iron overload state; nonalcoholic fatty liver disease; hepatitis C genotype 1b, for which she apparently received treatment and felt to be cured from treatment; fibrosis of the liver is apparently a problem with her. She also has obesity. SOCIAL HISTORY: She is . She does not smoke or drink alcoholic beverages. ALLERGIES: She is intolerant to multiple medications, unfortunately including beta-blockers. REVIEW OF SYSTEMS: GASTROINTESTINAL: She did vomit. She was nauseated when she woke up, but not further. No bloody or black stool. GENITOURINARY: She denies. PULMONARY: She denies. CONSTITUTIONAL: She denies. NEUROLOGICAL: She has numbness and tingling sensation, of course, has headaches. PHYSICAL EXAMINATION: GENERAL: Physical examination shows her to be obese elderly female, in no respiratory distress. NECK: Supple. No jugular venous distention. LUNGS: Clear to auscultation, although few wheezes are noted on the right side. CARDIAC: Regular rate. Bradycardic. No heaves, thrills, gallops, or rubs are noted. ABDOMEN: Soft and nontender. Positive bowel sounds. EXTREMITIES: No clubbing, cyanosis, or edema. NEUROLOGICAL: She is awake, alert, responsive, and in no apparent distress. LABORATORY DATA: Labs show white count of 6, hemoglobin 12.2, and platelet count of 221. Sodium 140, potassium 4.5, bicarbonate of 20, BUN of 22, creatinine 0.6, glucose of 157. Troponin first set was negative, second set is pending. ProBNP of 193 only. Her coags, INR 1.0 and PTT of 22. IMAGING: Head CT in the emergency room here showed no intracranial bleed, mass effect, or edema, nonspecific white matter hypoattenuation, probably chronic small vessel disease, and pansinusitis. Chest x-ray, no acute findings. Her electrocardiogram shows basically sinus bradycardia at a rate of 50, really no ST or T-wave abnormalities being documented. Her vital signs have been reviewed. Her blood pressure initially yesterday in the emergency room was 166/76. It has been all the way up to 181/67. Her heart rates have been documented in the 50s here. ASSESSMENT AND PLAN: 1. Syncope and near syncope. 2. Cephalgia. 3. Coronary artery disease, status post coronary stenting. 4. Diabetes mellitus. 5. Hypertension. 6. Hyperlipidemia. 7. Coronary artery disease with drug-eluting stents to mid LAD through left internal mammary graft in July 2016. 8. Osteoporosis. 9. Hypothyroidism. 10. Parathyroid adenoma. 11. Edema. 12. History of hepatitis C, now cured. 13. Nonalcoholic fatty liver disease with fibrosis. Dr. Tam, this patient was seen in cardiac consultation. The patient indicates symptoms related to taking tizanidine. I am not sure if she actually completely passed out, but certainly does sound that way. She does have some bradycardia on the monitor that has been persistent. Her blood pressure was not significantly low, at least on arrival to the emergency room. I am not sure what the paramedics blood pressure readings were. Nevertheless, she should have orthostatic vitals checked and she should have repeat cardiac enzymes performed and repeat EKG performed and echocardiogram performed. Will be monitored on telemetry for now to see if her bradycardia is bad enough that she may require therapy, although does not appear so at this time. She has extensive records at [facility]. I have had a chance to review some of those records including a cardiac catheterization that was performed with Dr. Dumont recently. The patient herself does not feel that the symptoms are consistent with her prior coronary artery disease symptoms. Chino Guadalupe M.D. DR: RAMIRO JOB#: [id number] CC:
--- NOTE | 2017-04-29 12:17 | Discharge Summary ---
Discharge Summary Hospital Course Date of Admission Apr 27, 2017 at 13:48 Date of Discharge Apr 28, 2017 at 13:15 Admitting Diagnosis SYNCOPE YVAN Nowak is a 66 year old female who was admitted on Apr 27, 2017 at 13:48 for Syncope Hospital Course [id number] Discharge Discharge Disposition Patient was discharged to Home (01) Discharge Diagnoses: Claire Sexton NP Apr 29, 2017 12:17
--- NOTE | 2017-04-29 12:17 | Discharge Summary ---
Discharge Summary Hospital Course Date of Admission Apr 27, 2017 at 13:48 Date of Discharge Apr 28, 2017 at 13:15 Admitting Diagnosis SYNCOPE YVAN Nowak is a 66 year old female who was admitted on Apr 27, 2017 at 13:48 for Syncope Hospital Course [id number] Discharge Discharge Disposition Patient was discharged to Home (01) Discharge Diagnoses: Claire Sexton NP Apr 29, 2017 12:17
--- NOTE | 2017-04-29 12:17 | Discharge Summary ---
Discharge Summary Hospital Course Date of Admission Apr 27, 2017 at 13:48 Date of Discharge Apr 28, 2017 at 13:15 Admitting Diagnosis SYNCOPE YVAN Nowak is a 66 year old female who was admitted on Apr 27, 2017 at 13:48 for Syncope Hospital Course [id number] Discharge Discharge Disposition Patient was discharged to Home (01) Discharge Diagnoses: Claire Sexton NP Apr 29, 2017 12:17
--- NOTE | 2017-04-30 00:15 | Discharge Summary 2 SIG ---
DATE OF ADMISSION: 04/27/2017 DATE OF DISCHARGE: 04/28/2017 CONSULTANTS: 1. Chino Guadalupe M.D. 2. Fox Sanders M.D. BRIEF HOSPITAL COURSE: The patient is a 66-year-old female from home, was taken by the paramedics to ED, status post syncope. The patient passed out and hit her head. There was some nausea and vomiting. She was just prescribed a new medication by her neurologist for migraines. On evaluation at ED, blood work showed no leukocytosis. Troponin was negative. CT of the brain showed no acute intracranial bleed, mass effect, or edema with mild atrophy of the brain and nonspecific white matter hypoattenuation due to chronic small vessel disease. Chest x-ray done showed no acute findings. EKG showed bradycardia, however recent strips showed normal sinus rhythm with no PVCs and no ectopy. She was admitted to telemetry and underwent cardiac and neurologic evaluation. Neurological exam was stable. The patient was continued with intractable cephalgia, probably muscle contraction type. She was given Tylenol and Advil for pain management and continued on Lexapro and Ativan. Tizanidine was discontinued as it may contribute to orthostatic hypotension. She was bradycardic on the monitor and was observed at telemetry. HR stable. Blood work Blood pressure is stable. She was given PT and OT. Due to rapid unexpected improvement in symptoms, she was eventually discharged home. FINAL DIAGNOSES: 1. Acute encephalopathy. 2. Depression. 3. Anxiety. 4. Syncope, possibly vasovagal. 5. Cephalgia. 6. Diabetes mellitus. 7. Hypertension. 8. Hyperlipidemia. 9. Coronary artery disease with stents. 10. Osteoporosis. 11. Hypothyroidism. 12. Parathyroid adenoma. 13. Hepatitis C, status post treatment. 14. Nonalcoholic fatty liver disease with fibrosis. DISPOSITION: The patient was discharged home. DISCHARGE MEDICATIONS: Refer to medication list. FOLLOWUP: Follow up with PMD in a week. Nicola Tam M.D. I have been assigned to dictate discharge summary on this account and I was not involved in the patient's management. Claire Sexton N.P. DR: Lavell JOB#: [id number] CC: VITO
--- NOTE | 2017-05-08 16:28 | Cardiology Report ---
APPROVED REPORT EKG Measurement Heart [id number] DC 146P52 [id number] Sinus bradycardia Otherwise normal ECG
--- NOTE | 2017-05-08 16:28 | Cardiology Report ---
APPROVED REPORT EKG Measurement Heart [id number] SD 146P52 [id number] Sinus bradycardia Otherwise normal ECG
--- NOTE | 2017-05-08 16:28 | Cardiology Report ---
APPROVED REPORT EKG Measurement Heart [id number] KY 146P52 [id number] Sinus bradycardia Otherwise normal ECG
== END 2017-04-28 13:15 | disposition home or self-care (01) | DRG 72 ==
LOC: EDBD 13:05 → EMR 13:31 → 2E 13:48 → EDBEDREQ 15:59
DX: G93.40 Encephalopathy, unspecified (principal); K74.0 Hepatic fibrosis; I10 Essential (primary) hypertension; K76.0 Fatty (change of) liver, not elsewhere classified; R00.1 Bradycardia, unspecified; R55 Syncope and collapse; E11.9 Type 2 diabetes mellitus without complications; E78.5 Hyperlipidemia, unspecified; I25.10 Atherosclerotic heart disease of native coronary artery without angina pectoris; F41.8 Other specified anxiety disorders; Z95.5 Presence of coronary angioplasty implant and graft; M81.0 Age-related osteoporosis without current pathological fracture; E03.9 Hypothyroidism, unspecified; D35.1 Benign neoplasm of parathyroid gland; Z86.19 Personal history of other infectious and parasitic diseases; Z79.02 Long term (current) use of antithrombotics/antiplatelets; Z79.84 Long term (current) use of oral hypoglycemic drugs; G44.89 Other headache syndrome; Z95.1 Presence of aortocoronary bypass graft; Z91.81 History of falling; F32.9 Major depressive disorder, single episode, unspecified
CPT/HCPCS: 36415; 70450; 71010; 80053; 80061; 82550; 82553; 82962; 83880; 84443; 84484; 85025; 85610; 85730; 93005; 94664; 99285; J1815; J2405